=== PATIENT | female | born 1990 | race Caucasian/White ===

== ENCOUNTER 2017-01-10 11:15 | Emergency (ER) | payer SELFPAY ==
[~2017-01-10] VITALS: Ht 165.1 cm; Wt 63.5 kg
--- NOTE | 2017-01-10 12:07 | NUR ---
Pt evaluated for a head injury "after a camera was dropper on my head"; a/o x 4, vss, nad noted; Dr. Mckenzie applied adhesive tissue on the abrasion wound. Patient discharged home in stable conditon. Written and verbal after care instructions given. Patient verbalizes understanding of instructions.
[2017-01-10 12:10] VITALS: BP 116/72
== END 2017-01-10 12:11 | disposition home or self-care (01) ==
LOC: ER 11:15
DX: S06.0X0A Concussion without loss of consciousness, initial encounter (principal); S01.01XA Laceration without foreign body of scalp, initial encounter; Z88.0 Allergy status to penicillin; Z88.1 Allergy status to other antibiotic agents; W22.8XXA Striking against or struck by other objects, initial encounter; Y93.89 Activity, other specified; Y99.8 Other external cause status; Y92.89 Other specified places as the place of occurrence of the external cause
CPT/HCPCS: A4663